=== PATIENT | female | born 1980 | race Hispanic/Latino ===

== ENCOUNTER 2017-11-10 11:50 | Emergency (ER) | payer BC, MEDICAID ==
[2017-11-10 12:06] VITALS: BMI 26.4
[2017-11-10 12:07] VITALS: BP 126/82; PULSE 68; O2SAT 99
[2017-11-10 12:42] VITALS: RESP 18; TEMP 98
--- NOTE | 2017-11-10 13:04 | ED PDOC ---
HPI: Back Time Seen by Provider: 11/10/17 12:55 Chief Complaint (Nursing): Back Pain History Per: Patient History/Exam Limitations: no limitations Onset/Duration Of Symptoms: Days Current Symptoms Are (Timing): Still Present Additional Complaint(s): 37-year-old female, with a past medical history of 6 herniated discs, presents to ED complaining of severe back pain and neck after waking up this morning. Did not take any medications today. Patient notes additional burning sensation along left shoulder and upper back. Denies any urinary/rectal incontinence PMD: "[facility]" Other: [facility] Past Medical History Reviewed: Historical Data, Nursing Documentation, Vital Signs Vital Signs: Last Vital Signs Temp 98.0 F 11/10/17 12:10 Pulse 68 11/10/17 12:10 Resp 18 11/10/17 12:10 BP 126/82 11/10/17 12:10 Pulse Ox 99 11/10/17 12:10 - Medical History PMH: Asthma (exercise induced), Back Problems (6 herniated discs), Migraine - Surgical History Other surgeries: Lasix, sinus surgeries - Family History Family History: States: No Known Family Hx - Immunization History Hx Tetanus Toxoid Vaccination: No Hx Influenza Vaccination: No Hx Pneumococcal Vaccination: No - Home Medications Home Medications: Ambulatory Orders Medication Instructions Recorded Amitriptyline [Elavil] 25 mg PO DAILY 05/29/15 Famotidine [Pepcid] 20 mg PO BID #30 tab 05/29/15 Lactulose 10 gm NA DAILY 5 Days ml 05/29/15 Lurasidone HCl [Latuda] 40 mg PO DAILY 05/29/15 Sertraline [Zoloft] 100 mg PO DAILY 05/29/15 Topiramate [Topamax] 150 mg PO DAILY 05/29/15 Zolpidem Tartrate [Ambien] 10 mg PO HS 05/29/15 tiZANidine [Zanaflex] 2 mg PO DAILY 05/29/15 Acetaminophen [Acetaminophen Extra 2 tab PO Q6 PRN #24 tablet 11/10/17 Strength] Methylprednisolone [Medrol Dose 4 mg PO DAILY #21 mg 11/10/17 Pack (21 tabs)] diaZEpam [Valium] 5 mg PO Q8 PRN #4 tab 11/10/17 - Allergies Allergies/Adverse Reactions: Allergies Allergy/AdvReac Type Severity Reaction Status Date / Time No Known Allergies Allergy Verified 05/29/15 14:49 Physical Exam - Reviewed Nursing Documentation Reviewed: Yes Vital Signs Reviewed: Yes - Physical Exam Back: Positive for: Other (Mild Paracervical Tenderness) Neurologic/Psych: Positive for: Other ((+) 5/5 [employer] Strength) - ECG O2 Sat by Pulse Oximetry: 99 (RA) Pulse Ox Interpretation: Normal Medical Decision Making Medical Decision Making: Time: 13:00 Plan: - Toradol 30 mg IM STAT Upon provider evaluation patient is medically stable, and requires no further treatment in the ED at this time. Patient will be discharged with Rx for Acetaminophen Extra strength, Valium and Medrol Dose Pack (21 tabs). Counseling was provided and all questions were answered regarding diagnosis and need for follow up with PCP. There is agreement to discharge plan. Return if symptoms persist or worsen. Scribe Attestation: Documented by Naif Vega, acting as a scribe for Jose Alberto Bagley PA-C. Provider Scribe Attestation: All medical record entries made by the Scribe were at my direction and personally dictated by me. I have reviewed the chart and agree that the record accurately reflects my personal performance of the history, physical exam, medical decision making, and the department course for this patient. I have also personally directed, reviewed, and agree with the discharge instructions and disposition. Disposition - Clinical Impression Clinical Impression: Cervical radiculopathy - Patient ED Disposition Is Patient to be Admitted: No - Disposition Disposition: Routine/Home Disposition Time: 13:45 Condition: FAIR Prescriptions: Acetaminophen [Acetaminophen Extra Strength] 2 tab PO Q6 PRN #24 tablet PRN Reason: Pain, Moderate (4-7) diaZEpam [Valium] 5 mg PO Q8 PRN #4 tab PRN Reason: Muscle Spasm Methylprednisolone [Medrol Dose Pack (21 tabs)] 4 mg PO DAILY #21 mg Instructions: Neck Pain, Radiculopathy (DC) Forms: [employer] [facility] ([place]), [facility] ED School/Work Excuse
== END 2017-11-10 13:49 | disposition home or self-care (01) ==
LOC: H.ER 11:50
DX: M54.12 Radiculopathy, cervical region (principal); J45.909 Unspecified asthma, uncomplicated
CPT/HCPCS: 81025; 96372; 99283; J1885